=== PATIENT | male | born 1950 | race Caucasian/White ===

== ENCOUNTER 2016-11-11 07:19 | Day surgery (SDC) | payer OTHER ==
[~2016-11-11] VITALS: Ht 180.3 cm; Wt 108.8 kg
[~2016-11-11 07:19] MED LIST: AMLODIPINE BESYL5 MG PO; ASPIR 8181 M1 PO; HYZAAR 100-11 TABLET PO; METFORMIN HCL500 MG PO; MULTI-VITAMIN1 EAC4 PO; PRAVASTATIN SOD20 MG PO; PROSTATE HEALT1 EAC1 PO; RANITIDINE HCL150 MG PO
[2016-11-11 07:53] VITALS: BP 163/88
[2016-11-11 08:42] LABS: CHLORIDE 105 mEq/L (99-109); POTASSIUM 3.9 mEq/L (3.7-5.4); SODIUM 141 mEq/L (136-147)
[2016-11-11 08:44] LABS: GLUCOSE 127 mg/dL (70-99)
[2016-11-11 08:45] LABS: ANION GAP 8 MEQ/L (2-14)
[2016-11-11 08:48] LABS: GFR ESTIMATE (CALCULATED) > 59 mL/min/; UREA NITROGEN (BUN) 15 mg/dL (9-23)
[2016-11-11 09:22] LABS: POINT-OF-CARE METER ID UU14174212
[2016-11-11] MEDS ORDERED: NORCO 5/3251 TABLET PO (10:37)
[2016-11-11 10:39] LABS: POINT-OF-CARE METER ID UU13113675; POINT-OF-CARE USER ID 515036437
[2016-11-11 11:20] VITALS: BP 172/62
[2016-11-11 12:09] VITALS: BP 136/75
== END 2016-11-11 12:20 | disposition home or self-care (01) ==
LOC: SDC 07:19
PROVIDERS: Surgery
PROC: 0WUF0JZ Supplement Abdominal Wall with Synthetic Substitute, Open Approach (ICD-10-PCS; principal; 2016-11-11)
DX: K43.2 Incisional hernia without obstruction or gangrene (principal); I10 Essential (primary) hypertension; E11.9 Type 2 diabetes mellitus without complications; M19.90 Unspecified osteoarthritis, unspecified site; E66.9 Obesity, unspecified; Z68.35 Body mass index [BMI] 35.0-35.9, adult; Z79.84 Long term (current) use of oral hypoglycemic drugs; Z79.82 Long term (current) use of aspirin; Z80.0 Family history of malignant neoplasm of digestive organs; Z80.6 Family history of leukemia; Z80.7 Family history of other malignant neoplasms of lymphoid, hematopoietic and related tissues; Z82.49 Family history of ischemic heart disease and other diseases of the circulatory system
CPT/HCPCS: 80048; 82948; 93005; C1781; J0690; J1885; J2250; J2405; J3010; S0020